=== PATIENT | male | born 1995 | race Caucasian/White ===

== ENCOUNTER 2021-04-24 08:38 | Emergency (ER) | payer MEDICAID ==
[~2021-04-24] VITALS: Ht 175.3 cm; Wt 77.5 kg
--- NOTE | 2021-04-24 08:45 | NUR ---
DONAWing FROM HOME C/O FENTANYL WD, LAST DOSE 04/23, FAMILY REPORTS PT "JUST LAYS IN BED & WON'T GET UP TO DO ANYTHING", PT REPORTS TAKING "15-20 PILLS/DAY SINCE MY LEG SURGERIES, I JUST WANT SOMETHING FOR THE PAIN BUT I ALSO WANT TO STOP TAKING FENTANYL". PT CHANGED INTO GOWN, NAD, COMFORT MEASURES PROVIDED, CALL LIGHT WITHIN REACH.
[2021-04-24] MEDS ORDERED: SODIUM CHLORIDE 0.9% 1,000 ML IV ONE (09:00)
[2021-04-24] MEDS ORDERED: SODIUM CHLORIDE FLUSH 10ML SYR IVF ONE (09:00)
[2021-04-24] MEDS ORDERED: ONDANSETRON 2MG/ML, 2ML IVPush ONE (09:00)
[2021-04-24] MEDS ORDERED: SODIUM CHLORIDE 0.9% 1,000ML IVBOLUS ONE (09:00)
--- NOTE | 2021-04-24 09:10 | NUR ---
PT PLACED ON 02 2 LPM VIA NC DUE TO LOW O2 SATS WHILE SLEEPING. PER CABLE TESTERS HELPER, PT WAS UPPER 70'S WITH GOOD WAVE FORM.
[2021-04-24 09:14] LABS: BASOPHILS % (AUTO) 0 % (0-1); EOSINOPHILS % (AUTO) 0 % (1-7); LYMPHOCYTES % (AUTO) 10 % (22-44); MEAN CORPUSCULAR HEMOGLOBIN 29.4 pg (27.5-34.5); MEAN CORPUSCULAR HGB CONC 34.3 g/dL (33.2-36.2); MEAN PLATELET VOLUME 7.9 fL (7.4-10.4); MONOCYTES % (AUTO) 5 % (2-9); NEUTROPHILS % (AUTO) 85 % (42-75); PLATELET COUNT 350 x10^3/uL (130-400); RED BLOOD COUNT 5.58 x10^6/uL (4.38-5.82); RED CELL DISTRIBUTION WIDTH 12.8 % (9.4-14.8)
[2021-04-24 09:16] LABS: MD NO
[2021-04-24] MEDS ORDERED: ONDANSETRON 2MG/ML, 2ML ONE (09:16)
[2021-04-24] MEDS ORDERED: BUPRENORPHINE/NALOXONE 2-0.5MG SL SCH (09:30)
[2021-04-24 09:55] LABS: ALANINE AMINOTRANSFERASE 31 U/L (12-78); ALBUMIN 4.3 g/dL (3.4-5.0); CALCIUM 9.9 mg/dL (8.5-10.1); CREATININE 0.88 mg/dL (0.7-1.3)
[2021-04-24 09:58] LABS: ALKALINE PHOSPHATASE 74 U/L (45-117); ANION GAP 10 mmol/L (5-15); BILIRUBIN,TOTAL 0.5 mg/dL (0.2-1.0); CHLORIDE 111 mmol/L (98-107); TOTAL PROTEIN 8.1 g/dL (6.4-8.2)
[2021-04-24] MEDS ORDERED: BUPRENORPHINE/NALOXONE 2-0.5MG SL ONE (11:00)
--- NOTE | 2021-04-24 11:25 | NUR ---
grandmother: Nida Holliday [phone]
--- NOTE | 2021-04-24 11:40 | NUR ---
PT PULLED OUT HIS IV AND REQUESTING TO LEAVE. MD SANTANA ADVISED.
[2021-04-24 11:50] VITALS: BP 127/80
--- NOTE | 2021-04-24 11:53 | NUR ---
PT REC'VD DISCHARGE INSTRUCTIONS AND EDUCATION. PT HAD NO FURTHER QUESTIONS.
--- NOTE | 2021-04-24 12:23 | NUR ---
PT AMBULATED TO WA AREA, STEADY GAIT.
== END 2021-04-24 12:25 | disposition home or self-care (01) ==
LOC: ED 10:37
DX: F11.13 Opioid abuse with withdrawal (principal); R11.2 Nausea with vomiting, unspecified; Z87.891 Personal history of nicotine dependence
CPT/HCPCS: 36415; 80053; 85025; 96361; 96374; 99283; J0572; J2405; J7030